=== PATIENT | male | born 1945 | race Caucasian/White ===

== ENCOUNTER → 2019-04-01 | Outpatient (CLI) | payer MEDICARE, BC | LOC: GMAJ 14:32 | PROVIDERS: ATTEND Family Medicine | DX: M10.9 Gout, unspecified (principal); I10 Essential (primary) hypertension; E78.2 Mixed hyperlipidemia; Z12.5 Encounter for screening for malignant neoplasm of prostate | CPT/HCPCS: 84550; G0103 ==

== ENCOUNTER → 2019-04-03 | Outpatient (CLI) | payer MEDICARE, BC ==
--- NOTE | 2019-04-06 12:12 | RAD ---
EXAM DESCRIPTION: Metastatic Series CLINICAL HISTORY: 73 years Male, MONOCLONAL GAMMOPATHY COMPARISON: None. Findings: 30 views/radiographs No suspicious lucent or sclerotic osseous lesion identified. Scattered degenerative changes are present. No acute or suspicious osseous or soft tissue abnormality identified. IMPRESSION: No suspicious osseous lesion identified. Electronically signed by: Yossi Maravilla MD 04/06/2019 12:10 PM [employer]
== END ==
LOC: RAD 14:13
PROVIDERS: ATTEND Internal Medicine Hematology & Oncology
DX: D47.2 Monoclonal gammopathy (principal)

== ENCOUNTER → 2019-04-10 | Outpatient (CLI) | payer MEDICARE, BC | LOC: LAB.NP 11:21 | PROVIDERS: ATTEND Internal Medicine Hematology & Oncology | DX: D47.2 Monoclonal gammopathy (principal) ==

== ENCOUNTER → 2019-12-22 | Outpatient (CLI) | payer MEDICARE, BC | LOC: LAB 14:32 | PROVIDERS: ATTEND Orthopaedic Surgery | DX: D47.2 Monoclonal gammopathy (principal) ==

== ENCOUNTER → 2019-12-30 | Outpatient (CLI) | payer MEDICARE, BC | LOC: GMAJ 10:45 | PROVIDERS: ATTEND Family Medicine | DX: M10.00 Idiopathic gout, unspecified site (principal); I10 Essential (primary) hypertension; E78.00 Pure hypercholesterolemia, unspecified ==